=== PATIENT | female | born 2000 | race Hispanic/Latino ===

== ENCOUNTER 2018-08-28 23:49 | Emergency (ER) | payer MEDICAID ==
[2018-08-29 00:20] LABS: BILIRUBIN,URINE NEGATIVE (NEGATIVE); COLOR,URINE YELLOW (YELLOW); GLUCOSE, URINE (UA) NEGATIVE (NEGATIVE); KETONES,URINE NEGATIVE (NEGATIVE); LEUKOCYTE ESTERASE ,URINE LARGE (NEGATIVE); NITRATE,URINE NEGATIVE (NEGATIVE); OCCULT BLOOD,URINE NEGATIVE (NEGATIVE); PROTEIN,URINE NEGATIVE (NEGATIVE); UROBILINOGEN,URINE 0.2 mg/dL (0.2-1.0)
[2018-08-29 00:23] LABS: BASOPHILS % (AUTO) 0.6 % (0.0-5.0); EOSINOPHILS % (AUTO) 1.8 % (0.0-8.0); HEMATOCRIT 36.3 % (36-48); LYMPHOCYTES % (AUTO) 21.2 % (21.0-51.0); MEAN CORPUSCULAR HEMOGLOBIN 33.4 pg (27.0-33.0); MEAN CORPUSCULAR HGB CONC 35.2 g/dL (32.0-36.0); MONOCYTES % (AUTO) 7.2 % (3.0-13.0); NEUTROPHILS % (AUTO) 69.2 % (40.0-77.0); PLATELET COUNT (AUTO) 198 K/uL (130-400); RED BLOOD CELL COUNT(AUTO) 3.82 MIL/uL (4.00-5.50); RED CELL DISTRIBUTION WIDTH 12.8 % (11.0-15.5); WHITE BLOOD COUNT (AUTO) 10.2 K/uL (4.8-10.8)
[2018-08-29 00:24] LABS: APPEARANCE,URINE HAZY (CLEAR)
[2018-08-29 00:28] LABS: BACTERIA,URINE Moderate /HPF (None Seen); RBC,URINE 0-1 /HPF (0-1)
[2018-08-29 00:43] LABS: CREATININE 0.6 mg/dL (0.5-1.5); POTASSIUM 3.5 mmol/L (3.5-5.1)
[2018-08-29 00:47] LABS: ALBUMIN 2.5 g/dL (3.5-5.0); BILIRUBIN,TOTAL 0.2 mg/dL (0.2-1.0); TOTAL PROTEIN, SERUM 6.9 g/dL (6.0-8.3)
[2018-08-29 01:05] LABS: AMPHET/METH SCREEN,URINE NEGATIVE (NEGATIVE); BARBITURATE SCREEN, URINE NEGATIVE (NEGATIVE); BENZODIAZEPINES SCREEN,URINE NEGATIVE (NEGATIVE); CANNABINOID SCREEN,URINE NEGATIVE (NEGATIVE); COCAINE SCREEN,URINE NEGATIVE (NEGATIVE); OPIATE SCREEN,URINE NEGATIVE (NEGATIVE); PHENCYCLIDINE SCREEN,URINE NEGATIVE (NEGATIVE)
[2018-08-29 01:28] LABS: APPEARANCE,URINE CLEAR (CLEAR); BILIRUBIN,URINE NEGATIVE (NEGATIVE); COLOR,URINE YELLOW (YELLOW); GLUCOSE, URINE (UA) NEGATIVE (NEGATIVE); KETONES,URINE NEGATIVE (NEGATIVE); LEUKOCYTE ESTERASE ,URINE SMALL (NEGATIVE); NITRATE,URINE NEGATIVE (NEGATIVE); OCCULT BLOOD,URINE NEGATIVE (NEGATIVE); PH,URINE 6.5 (5.0-8.0); PROTEIN,URINE NEGATIVE (NEGATIVE)
[2018-08-29 01:39] LABS: BACTERIA,URINE Few /HPF (None Seen)
[2018-08-29] MEDS ORDERED: SODIUM CHLORIDE 0.9% 50 ML IV ONE (02:43)
[2018-08-29] MEDS ORDERED: CEFTRIAXONE SODIUM 1 GM ONE (02:43)
== END 2018-08-29 03:23 | disposition home or self-care (01) ==
LOC: EDH 23:49
DX: O23.12 Infections of bladder in pregnancy, second trimester (principal); Z3A.23 23 weeks gestation of pregnancy; Z93.6 Other artificial openings of urinary tract status
CPT/HCPCS: 36415; 76770; 80053; 80305; 81001; 85025; 87077; 87088; 87186; 96374; 99285; J0696

== ENCOUNTER 2018-09-10 18:32 | Emergency (ER) | payer MEDICAID ==
[2018-09-10] MEDS ORDERED: ACETAMINOPHEN EXTRA STRENGTH 500 MG TABLET ONE (19:18)
[2018-09-10] MEDS ORDERED: ACETAMINOPHEN-CODEINE ELIXIR 5 ML UDCUP ONE (21:51)
[2018-09-10 22:26] LABS: BILIRUBIN,URINE Negative (NEGATIVE); COLOR,URINE Dark Yellow (YELLOW); GLUCOSE, URINE (UA) Negative (NEGATIVE); KETONES,URINE >=80 mg/dL (NEGATIVE); LEUKOCYTE ESTERASE ,URINE Moderate (NEGATIVE); NITRATE,URINE Positive (NEGATIVE); OCCULT BLOOD,URINE Large (NEGATIVE); PH,URINE 7.5 (5.0-8.0); PROTEIN,URINE 300 (NEGATIVE)
[2018-09-10 22:31] LABS: APPEARANCE,URINE SLIGHTLY CLOUDY (CLEAR)
[2018-09-10 22:39] LABS: BACTERIA,URINE Few /HPF (None Seen); MUCUS,URINE Rare LPF (None Seen); RBC,URINE 51-100 /HPF (0-1); SQUAMOUS EPITHELIAL CELL,UR 0-2 /HPF (0-2)
== END 2018-09-11 01:04 | disposition home or self-care (01) ==
LOC: EDH 18:32
DX: O23.42 Unspecified infection of urinary tract in pregnancy, second trimester (principal); Z3A.25 25 weeks gestation of pregnancy
CPT/HCPCS: 76770; 81001

== ENCOUNTER 2018-09-17 08:43 | Day surgery (SDC) | payer MEDICAID ==
[2018-09-15 11:58] VITALS: BP 105/60
[2018-09-15 12:13] LABS: INR 0.91 (0.85-1.15); PARTIAL THROMBOPLASTIN TIME 32.4 SEC (26.3-35.5); PROTHROMBIN TIME 9.6 SEC (9.6-11.6)
[2018-09-15 12:14] LABS: ALBUMIN 2.6 g/dL (3.5-5.0); BILIRUBIN,TOTAL 0.2 mg/dL (0.2-1.0); CREATININE 0.5 mg/dL (0.5-1.5); POTASSIUM 4.4 mmol/L (3.5-5.1)
[~2018-09-17] VITALS: Ht 167.6 cm; Wt 75.5 kg
[~2018-09-17 08:43] MED LIST: CLIN300C9 PO; DOXY1TAB3 PO; PREN-64 PO
[2018-09-17 09:45] VITALS: BP 117/68
[2018-09-17] MEDS ORDERED: SODIUM CHLORIDE 0.9% 1000ML 1,000 ML IV ONE (10:06)
[2018-09-17] MEDS ORDERED: IODIXANOL 320 MG/ML 100 ML VIAL ONE (10:55)
[2018-09-17] MEDS ORDERED: LIDOCAINE HCL 1% MDV 50ML VIAL ONE (10:55)
[2018-09-17] MEDS ORDERED: SODIUM BICARB 50MEQ 50ML VIAL ONE (10:55)
[2018-09-17] MEDS ORDERED: LIDOCAINE HCL 2% 20ML ONE (10:56)
[2018-09-17 12:10] VITALS: BP 88/39
[2018-09-17 12:11] VITALS: BP 78/47
[2018-09-17 12:16] VITALS: BP 84/48
[2018-09-17 12:22] VITALS: BP 98/50
[2018-09-17 12:36] VITALS: BP 100/53
== END 2018-09-17 15:00 | disposition home or self-care (01) ==
LOC: DAH 08:43 → SUH 08:43
PROVIDERS: ATTEND Obstetrics & Gynecology
DX: O23.92 Unspecified genitourinary tract infection in pregnancy, second trimester (principal); Z3A.25 25 weeks gestation of pregnancy; N13.30 Unspecified hydronephrosis; M54.5 Low back pain; Z82.49 Family history of ischemic heart disease and other diseases of the circulatory system; Z83.3 Family history of diabetes mellitus
CPT/HCPCS: 36415; 50435; 80053; 85610; 85730; C1729; C1769; J1644; J3490 ×2; J7030; Q9967

== ENCOUNTER 2018-11-02 08:21 | Day surgery (SDC) | payer MEDICAID ==
[2018-11-01 08:55] VITALS: BP 108/60
[2018-11-01 09:19] LABS: ALBUMIN 2.4 g/dL (3.5-5.0); BILIRUBIN,TOTAL 0.2 mg/dL (0.2-1.0); CREATININE 0.5 mg/dL (0.5-1.5); POTASSIUM 3.4 mmol/L (3.5-5.1); TOTAL PROTEIN, SERUM 6.5 g/dL (6.0-8.3)
[2018-11-01 09:31] LABS: INR 0.92 (0.85-1.15); PARTIAL THROMBOPLASTIN TIME 30.9 SEC (26.3-35.5); PROTHROMBIN TIME 9.7 SEC (9.6-11.6)
--- NOTE | 2018-11-01 11:00 | NUR ---
CLARIFICATION ORDER CALLED DR. PEREZ'S OFFICE TO CLARIFY SIDE OF PROCEDURE, SPOKE TO DAPHNEY GLORIA NP. PER DAPHNEY, PROCEDURE TO RIGHT SIDE.
--- NOTE | 2018-11-01 13:41 | NUR ---
ABNORMAL LABS REPORTED ABNORMAL LABS TO DAPHNEY GLORIA NP. POTASSIUM 3.4 AND BUN 2. ORDERS TO REDRAW BMP ON ARRIVAL.
[2018-11-02] VITALS (8 sets, daily range): BP systolic 98–104; BP diastolic 59–80
[~2018-11-02] VITALS: Ht 167.6 cm; Wt 81.4 kg
[~2018-11-02 08:21] MED LIST changes: -CLIN300C9 PO
--- NOTE | 2018-11-02 08:35 | NUR ---
yellow urine in right nephrostomy tube noted, gauze dry, discolored, tape present
[2018-11-02 08:56] LABS: CREATININE 0.5 mg/dL (0.5-1.5); POTASSIUM 3.6 mmol/L (3.5-5.1)
--- NOTE | 2018-11-02 10:44 | NUR ---
to Keymodule Assembly Supervisor for nephrostomy tube exchange via stretcher transport by Elayne CARTY, patient in stable condition
[2018-11-02] MEDS ORDERED: SODIUM BICARB 50MEQ 50ML VIAL ONE (10:45)
[2018-11-02] MEDS ORDERED: IODIXANOL 320 MG/ML 100 ML VIAL ONE (10:45)
[2018-11-02] MEDS ORDERED: LIDOCAINE HCL 1% MDV 50ML VIAL ONE (10:45)
== END 2018-11-02 13:15 | disposition home or self-care (01) ==
LOC: DAH 08:21
PROVIDERS: ATTEND Obstetrics & Gynecology
DX: N13.30 Unspecified hydronephrosis (principal); Z82.49 Family history of ischemic heart disease and other diseases of the circulatory system; Z83.3 Family history of diabetes mellitus; Z79.899 Other long term (current) drug therapy
CPT/HCPCS: 36415 ×2; 50435; 80048; 80053; 85610; 85730; A4606; C1729; C1769 ×2; J1644; J3490 ×2; Q9967

== ENCOUNTER 2018-11-17 13:25 | Observation (INO) | payer MEDICAID ==
[2018-11-17 15:11] LABS: APPEARANCE,URINE CLOUDY (CLEAR); BILIRUBIN,URINE SMALL (NEGATIVE); COLOR,URINE YELLOW (YELLOW); GLUCOSE, URINE (UA) 100 mg/dL (NEGATIVE); KETONES,URINE NEGATIVE (NEGATIVE); LEUKOCYTE ESTERASE ,URINE MODERATE (NEGATIVE); NITRATE,URINE NEGATIVE (NEGATIVE); OCCULT BLOOD,URINE LARGE (NEGATIVE); PROTEIN,URINE 30 (NEGATIVE)
[2018-11-17 15:55] LABS: BACTERIA,URINE Few /HPF (None Seen); SQUAMOUS EPITHELIAL CELL,UR Rare /HPF (0-2); WBC,URINE 26-50 /HPF (0-1)
[2018-11-17 15:56] LABS: CALCIUM OXALATE CRYSTALS,UR Few /LPF (None Seen); TRANSITIONAL EPI CELLS,URINE Few /HPF (None Seen)
[2018-11-17 15:57] LABS: COARSE GRANULAR CASTS,URINE 0-2 /LPF (None Seen)
[2018-11-17] MEDS ORDERED: LIDOCAINE HCL-MPF 1% 2ML VIAL IM SCH (16:15)
[2018-11-17] MEDS ORDERED: CEFTRIAXONE SODIUM 1 GM IM SCH (16:15)
== END 2018-11-17 16:30 | disposition home or self-care (01) ==
LOC: EDH 13:25 → LDH 13:26
PROVIDERS: ADMIT Obstetrics & Gynecology; ATTEND Obstetrics & Gynecology
DX: O26.893 Other specified pregnancy related conditions, third trimester (principal); R10.30 Lower abdominal pain, unspecified; Z3A.34 34 weeks gestation of pregnancy
CPT/HCPCS: 81001; 96372 ×2; 99284; G0378 ×3; J0696; J3490

== ENCOUNTER 2018-11-23 22:32 | Observation (INO) | payer MEDICAID ==
[~2018-11-23] VITALS: Ht 167.6 cm; Wt 82.1 kg
[2018-11-23] MEDS ORDERED: LACTATED RINGERS 1000ML 1,000 ML IV SCH (22:45)
[2018-11-23 22:49] VITALS: BP 119/73
[2018-11-23 23:37] LABS: APPEARANCE,URINE Turbid (CLEAR); BILIRUBIN,URINE Negative (NEGATIVE); COLOR,URINE Dark Yellow (YELLOW); GLUCOSE, URINE (UA) Negative (NEGATIVE); KETONES,URINE Trace mg/dL (NEGATIVE); LEUKOCYTE ESTERASE ,URINE Large (NEGATIVE); NITRATE,URINE Negative (NEGATIVE); OCCULT BLOOD,URINE Moderate (NEGATIVE); PH,URINE 5.5 (5.0-8.0); PROTEIN,URINE POS 2+ (NEGATIVE)
[2018-11-23 23:50] LABS: BACTERIA,URINE Few /HPF (None Seen); WBC,URINE 26-50 /HPF (0-1)
[2018-11-23 23:51] LABS: CALCIUM OXALATE CRYSTALS,UR Few /LPF (None Seen); MUCUS,URINE Many LPF (None Seen); SQUAMOUS EPITHELIAL CELL,UR Moderate /HPF (0-2)
== END 2018-11-24 00:05 | disposition home or self-care (01) ==
LOC: EDH 22:32 → LDH 22:33
PROVIDERS: ADMIT Obstetrics & Gynecology; ATTEND Obstetrics & Gynecology
DX: O60.03 Preterm labor without delivery, third trimester (principal); Z3A.35 35 weeks gestation of pregnancy
CPT/HCPCS: 81001; 99284; G0378 ×2

== ENCOUNTER 2018-11-24 06:32 | Emergency (ER) | payer MEDICAID ==
[2018-11-24 07:04] LABS: APPEARANCE,URINE Clear (CLEAR); BILIRUBIN,URINE Negative (NEGATIVE); COLOR,URINE Yellow (YELLOW); GLUCOSE, URINE (UA) Negative (NEGATIVE); KETONES,URINE Negative (NEGATIVE); LEUKOCYTE ESTERASE ,URINE Large (NEGATIVE); NITRATE,URINE Negative (NEGATIVE); OCCULT BLOOD,URINE Small (NEGATIVE); PH,URINE 6.5 (5.0-8.0); PROTEIN,URINE Negative (NEGATIVE)
[2018-11-24 07:25] LABS: BACTERIA,URINE Rare /HPF (None Seen); RBC,URINE 0-1 /HPF (0-1); SQUAMOUS EPITHELIAL CELL,UR Rare /HPF (0-2); WBC,URINE 26-50 /HPF (0-1)
[2018-11-24 07:29] LABS: BASOPHILS % (AUTO) 0.7 % (0.0-5.0); EOSINOPHILS % (AUTO) 1.4 % (0.0-8.0); HEMATOCRIT 34.7 % (36-48); LYMPHOCYTES % (AUTO) 24.3 % (21.0-51.0); MEAN CORPUSCULAR HEMOGLOBIN 29.3 pg (27.0-33.0); MEAN CORPUSCULAR HGB CONC 33.1 g/dL (32.0-36.0); MEAN CORPUSCULAR VOLUME 88.7 fL (80-100); MONOCYTES % (AUTO) 8.7 % (3.0-13.0); NEUTROPHILS % (AUTO) 64.9 % (40.0-77.0); NUCLEATED RED BLOOD CELLS 0.1 % (0.0-0.19); PLATELET COUNT (AUTO) 214 K/uL (130-400); RED BLOOD CELL COUNT(AUTO) 3.91 MIL/uL (4.00-5.50); RED CELL DISTRIBUTION WIDTH 13.9 % (11.0-15.5); WHITE BLOOD COUNT (AUTO) 9.2 K/uL (4.8-10.8)
[2018-11-24 07:32] LABS: CREATININE 0.5 mg/dL (0.5-1.5); POTASSIUM 3.6 mmol/L (3.5-5.1)
[2018-11-24 07:38] LABS: ALBUMIN 2.4 g/dL (3.5-5.0); BILIRUBIN,DIRECT 0.1 mg/dL (0.0-0.3); BILIRUBIN,TOTAL 0.2 mg/dL (0.2-1.0); TOTAL PROTEIN, SERUM 6.4 g/dL (6.0-8.3)
[2018-11-24 08:39] LABS: INR 0.9 (0.85-1.15); PARTIAL THROMBOPLASTIN TIME 29.2 SEC (26.3-35.5); PROTHROMBIN TIME 9.5 SEC (9.6-11.6)
== END 2018-11-24 09:46 | disposition home or self-care (01) ==
LOC: EDH 06:32
DX: O26.893 Other specified pregnancy related conditions, third trimester (principal); T83.022A Displacement of nephrostomy catheter, initial encounter; R10.9 Unspecified abdominal pain; Z3A.35 35 weeks gestation of pregnancy; Y84.8 Other medical procedures as the cause of abnormal reaction of the patient, or of later complication, without mention of misadventure at the time of the procedure; Y92.89 Other specified places as the place of occurrence of the external cause
CPT/HCPCS: 36415; 80048; 80076; 83690; 85025; 85610; 85730

== ENCOUNTER 2018-11-24 14:34 | Day surgery (SDC) | payer MEDICAID ==
[~2018-11-24] VITALS: Ht 167.6 cm; Wt 81.6 kg
[2018-11-24 15:15] VITALS: BP 116/67
[2018-11-24 16:15] VITALS: BP 114/66
[2018-11-24 17:00] VITALS: BP 102/61
--- NOTE | 2018-11-24 17:40 | NUR ---
transported to slab stripper via stretcher in stable condition by Elayne CARTY
[2018-11-24] MEDS ORDERED: LIDOCAINE HCL 1% MDV 50ML VIAL ONE (17:55)
[2018-11-24] MEDS ORDERED: IODIXANOL 320 MG/ML 100 ML VIAL ONE (17:55)
[2018-11-24 18:40] VITALS: BP 105/54
--- NOTE | 2018-11-24 18:40 | NUR ---
ASSESSMENT PT HERE FROM [employer]. PT AAOX3. NEPHROSTOMY TUBE DRY AND INTACT. SOFT TO TOUCH. DRAINING CLEAR YELLOW URINE. AT BEDSIDE.
[2018-11-24 19:00] VITALS: BP 102/57
--- NOTE | 2018-11-24 19:00 | NUR ---
SITE CHECK. NEPHROSTOMY TUBE DRY AND INTACT. SOFT TO TOUCH. DISCHARGE INSTRUCTIONS GIVEN TO PT AND PTS . BOTH VERBALIZED UNDERSTANDING. INSTRUCTED ON IMPORTANCE OF BAG NOT DRAINING TO CALL MD. VERBALIZED UNDERSTANDING.
--- NOTE | 2018-11-24 19:28 | NUR ---
LOWER BACK Addendum: 11/24/18 at 1928 by DOMINIC GARZA RN RN Amended: Links added.
== END 2018-11-24 19:05 | disposition home or self-care (01) ==
LOC: DAH 14:34 → EDSTATUS 14:34 → DAH 19:05
PROVIDERS: ATTEND Obstetrics & Gynecology
DX: T83.84XA Pain due to genitourinary prosthetic devices, implants and grafts, initial encounter (principal); Z82.49 Family history of ischemic heart disease and other diseases of the circulatory system; Z83.3 Family history of diabetes mellitus; N13.30 Unspecified hydronephrosis
CPT/HCPCS: 50431; A4606; C1769; J1644; J3490; Q9967

== ENCOUNTER 2018-12-19 06:42 | Observation (INO) | payer MEDICAID ==
[~2018-12-19] VITALS: Ht 198.1 cm; Wt 83.5 kg
[2018-12-19 07:31] LABS: APPEARANCE,URINE SL CLOUDY (CLEAR); BILIRUBIN,URINE NEGATIVE (NEGATIVE); COLOR,URINE YELLOW (YELLOW); GLUCOSE, URINE (UA) NEGATIVE (NEGATIVE); KETONES,URINE NEGATIVE (NEGATIVE); LEUKOCYTE ESTERASE ,URINE MODERATE (NEGATIVE); NITRATE,URINE NEGATIVE (NEGATIVE); OCCULT BLOOD,URINE NEGATIVE (NEGATIVE); PROTEIN,URINE NEGATIVE (NEGATIVE); UROBILINOGEN,URINE 0.2 mg/dL (0.2-1.0)
[2018-12-19 07:59] LABS: BACTERIA,URINE Few /HPF (None Seen); RBC,URINE None Seen /HPF (0-1); SQUAMOUS EPITHELIAL CELL,UR Few /HPF (0-2)
== END 2018-12-19 10:40 | disposition home or self-care (01) ==
LOC: EDH 06:42 → LDH 06:43 → EDH 06:50
PROVIDERS: ADMIT Obstetrics & Gynecology; ATTEND Obstetrics & Gynecology
DX: O26.893 Other specified pregnancy related conditions, third trimester (principal); R10.10 Upper abdominal pain, unspecified
CPT/HCPCS: 81001; 99284; G0378 ×4

== ENCOUNTER 2018-12-21 18:22 | Inpatient (IN) | payer MEDICAID | END 2018-12-24 10:40 | disposition home or self-care (01) | LOC: LDH 18:22 → WSH 12-22 18:00 | PROC: 10E0XZZ Delivery of Products of Conception, External Approach (ICD-10-PCS; principal; ~2018-12-21) | DX: O80 Encounter for full-term uncomplicated delivery (principal); Z37.0 Single live birth; Z3A.39 39 weeks gestation of pregnancy ==

== ENCOUNTER 2019-01-14 10:28 | Inpatient (IN) | payer MEDICAID ==
[~2019-01-14] VITALS: Ht 167.6 cm; Wt 69.8 kg
[2019-01-14] MEDS ORDERED: ACETAMINOPHEN 325 MG TAB ONE ×2 (11:10→16:14)
[2019-01-14] MEDS ORDERED: LEVOFLOXACIN 500 MG/D5W 100 ML 100 ML ONE (11:10)
[2019-01-14] MEDS ORDERED: ONDANSETRON HCL 4 MG/2 ML VIAL ONE ×2 (11:10→17:58)
[2019-01-14] MEDS ORDERED: MORPHINE SULFATE 4 MG/1ML SYG ONE (11:11)
[2019-01-14 11:17] LABS: BASOPHILS % (AUTO) 0.3 % (0.0-5.0); EOSINOPHILS % (AUTO) 0.4 % (0.0-8.0); HEMATOCRIT 37.4 % (36-48); LYMPHOCYTES % (AUTO) 5.5 % (21.0-51.0); MEAN CORPUSCULAR HEMOGLOBIN 27.4 pg (27.0-33.0); MEAN CORPUSCULAR HGB CONC 32.7 g/dL (32.0-36.0); NEUTROPHILS % (AUTO) 89.8 % (40.0-77.0); PLATELET COUNT (AUTO) 240 K/uL (130-400); RED BLOOD CELL COUNT(AUTO) 4.46 MIL/uL (4.00-5.50); RED CELL DISTRIBUTION WIDTH 15.5 % (11.0-15.5); WHITE BLOOD COUNT (AUTO) 13.5 K/uL (4.8-10.8)
[2019-01-14 11:21] LABS: APPEARANCE,URINE CLOUDY (CLEAR); BILIRUBIN,URINE NEGATIVE (NEGATIVE); COLOR,URINE YELLOW (YELLOW); GLUCOSE, URINE (UA) NEGATIVE (NEGATIVE); KETONES,URINE NEGATIVE (NEGATIVE); LEUKOCYTE ESTERASE ,URINE LARGE (NEGATIVE); NITRATE,URINE POSITIVE (NEGATIVE); OCCULT BLOOD,URINE LARGE (NEGATIVE); PROTEIN,URINE 30 mg/dL (NEGATIVE); UROBILINOGEN,URINE 0.2 mg/dL (0.2-1.0)
[2019-01-14 11:30] LABS: BACTERIA,URINE Many /HPF (None Seen); INR 0.99 (0.85-1.15); PROTHROMBIN TIME 10.4 SEC (9.6-11.6); RBC,URINE 0-1 /HPF (0-1); WBC,URINE TNTC /HPF (0-1)
[2019-01-14 11:31] LABS: MUCUS,URINE Rare LPF (None Seen); SQUAMOUS EPITHELIAL CELL,UR Rare /HPF (0-2)
[2019-01-14 11:34] LABS: CARBON DIOXIDE 24 mmol/L (21-32); CHLORIDE 105 mmol/L (101-111); GLOMERULAR FILTR. RATE CALC 75 mL/min (>60); GLUCOSE,RANDOM 110 mg/dL (70-105); POTASSIUM 3.5 mmol/L (3.5-5.1); SODIUM SERUM 141 mmol/L (136-145); UREA NITROGEN, BLOOD 10 mg/dL (7-18)
[2019-01-14 11:50] LABS: ALANINE AMINOTRANSFERASE 71 U/L (12-78); ALBUMIN 3.1 g/dL (3.5-5.0); ASPARTATE AMINOTRANSFERASE 16 U/L (10-37); BILIRUBIN,TOTAL 0.4 mg/dL (0.2-1.0); CREATINE KINASE, TOTAL 36 U/L (21-232); MYOGLOBIN 41 ng/mL (10-92); TOTAL PROTEIN, SERUM 7.1 g/dL (6.0-8.3); TROPONIN I < 0.04 ng/mL (0.00-0.06)
[2019-01-14] MEDS: SODIUM CHLORIDE 0.9% 1000ML 1,000 ML IV SCH ×2 (12:00→20:30)
[2019-01-14] MEDS ORDERED: MORPHINE SULFATE 4 MG/1ML SYG IV PRN (13:30)
[2019-01-14] MEDS ORDERED: ACETAMINOPHEN 325 MG TAB PO PRN (13:30)
[2019-01-14] MEDS ORDERED: ONDANSETRON HCL 4 MG/2 ML VIAL IV PRN (13:30)
[2019-01-14] MEDS ORDERED: MORPHINE SULFATE 2 MG/ML 1ML SYG IV PRN (13:30)
[2019-01-14] MEDS ORDERED: LACTULOSE 20 GM/30 ML UDCUP PO PRN (13:30)
[2019-01-14 13:40] LABS: HEMOGLOBIN A1C 5.6 % (4.0-6.0)
[2019-01-14 13:55] LABS: MAGNESIUM 1.6 mg/dL (1.80-2.40); PHOSPHORUS 2.4 mg/dL (2.5-4.9)
[2019-01-14] MEDS ORDERED: IOHEXOL-350 75 ML VIAL IV ONE (15:42)
[2019-01-14] MEDS ORDERED: MAGNESIUM 2GM PREMIX 50ML 50 ML IV PRN (15:45)
[2019-01-14] MEDS ORDERED: MORPHINE SULFATE 2 MG/ML 1ML SYG ONE ×2 (16:07→17:50)
[2019-01-14] MEDS ORDERED: ZOSYN 3.375GM+NS 50ML 50 ML IV ONE (16:17)
[2019-01-14] MEDS: NEUTRA-PHOS PACKET 1 EACH PO SCH ×2 (17:00→21:00)
[2019-01-14] MEDS ORDERED: IBUPROFEN 400 MG TABLET ONE (17:49)
[2019-01-14] MEDS ORDERED: IBUPROFEN 200 MG TAB ONE (17:50)
--- NOTE | 2019-01-14 19:39 | NUR ---
PT WAS ADMITTED FROM ER FOR SEPSIS AND FEVER. PT WAS ORIENTED TO ROOM AND STAFF AND PT AT PRESENT IS OFFERING N/C. STATES SHE IS HUNGRY BUT AT PRESENT SHE IS NPO AND PT UNDERSTANDS WAS GIVEN ICE CHIPS.
[2019-01-14 19:45] VITALS: BP 107/57
[2019-01-14 20:00] VITALS: BP 106/55
[2019-01-14] MEDS: FAMOTIDINE/PF 20 MG/2 ML VIAL IV SCH (20:52)
[2019-01-14] MEDS: ZOSYN 3.375GM+NS 50ML 50 ML IV SCH (20:52)
[2019-01-14 21:00] VITALS: BP 84/33
[2019-01-14 22:00] VITALS: BP 81/66
[2019-01-14] MEDS: ACETAMINOPHEN 325 MG TAB PO PRN (22:01)
--- NOTE | 2019-01-14 22:30 | NUR ---
MEDICATED FOR NAUSEA AND PT HAD DRANK SOME APPLE JUICE, WAS ADVISED NOT TO DRINK ANY MORE JUICE FOR NOW.
[2019-01-14 23:00] VITALS: BP 96/51
[2019-01-15] VITALS (20 sets, daily range): BP systolic 81–118; BP diastolic 33–69
[2019-01-15 03:49] LABS: HEMATOCRIT 34.1 % (36-48); MEAN CORPUSCULAR HEMOGLOBIN 27.2 pg (27.0-33.0); MEAN CORPUSCULAR HGB CONC 32.1 g/dL (32.0-36.0); MEAN CORPUSCULAR VOLUME 84.8 fL (80-100); PLATELET COUNT (AUTO) 216 K/uL (130-400); RED BLOOD CELL COUNT(AUTO) 4.02 MIL/uL (4.00-5.50); WHITE BLOOD COUNT (AUTO) 17.3 K/uL (4.8-10.8)
[2019-01-15 04:07] LABS: CREATININE 0.9 mg/dL (0.5-1.5); POTASSIUM 3.6 mmol/L (3.5-5.1)
--- NOTE | 2019-01-15 04:57 | NUR ---
PT HAS BEEN UP TO BATHROOM TO VOID WITHOUT ANY DIFFICULTY. PT HAS HAD NO FURTHER NAUSEA.
[2019-01-15] MEDS: ZOSYN 3.375GM+NS 50ML 50 ML IV SCH ×3 (05:01→20:21)
[2019-01-15] MEDS: NEUTRA-PHOS PACKET 1 EACH PO SCH ×5 (09:22→20:21)
[2019-01-15] MEDS: FAMOTIDINE/PF 20 MG/2 ML VIAL IV SCH ×2 (09:23→20:21)
[2019-01-15] MEDS: ENOXAPARIN SODIUM 40 MG/0.4 ML SYRINGE SQ SCH (09:23)
[2019-01-15] MEDS ORDERED: MAGNESIUM 2GM PREMIX 50ML 50 ML IV PRN (11:15)
--- NOTE | 2019-01-15 11:15 | NUR ---
STATUS: DR. ALCAZAR ADVISED (RECEIVED INFORMATION FRO REGGIE BELLAMY IN REPORT THIS A.M.) THAT DR. DIAZ (UROLOGIST STREET CLEANER) STATES HE DOES NOT WANT TO GET INVOLVED IN CASE PATIENT IS PATIENT OF DR. BHATIA. DR. HOBBS IS INTERVENTIONAL RADIOLOGIST STREET CLEANER TODAY - HE WAS PAGED TO DR. ALCAZAR'S CELL NUMBER TO DISCUSS REMOVAL OF NEPHROSTOMY TUBE TODAY. PT ADVISED NPO.
--- NOTE | 2019-01-15 15:00 | NUR ---
UPDATE: PT ADVISED ON PLAN FOR 48 HRS ANTIBIOTICS THEN TO INTERVENTIONAL RADIOLOGY ON THURSDAY FOR PYELOGRAM AND POSS REMOVAL OF NEPHROSTOMY TUBE PER DR. ALCAZAR.
--- NOTE | 2019-01-15 16:00 | NUR ---
TRANSFERRED VIA AMBULATION TO ROOM 226. REPORT TO CARLOZ HUBBARD
--- NOTE | 2019-01-15 16:15 | NUR ---
RECEIVED TRANSFER TO ROOM 226 VIA BED ACCOMPANIED BY Lencho GLORIA, ALVA. PT. AAOX3, RESP.'S EVEN AND UNLABORED. DENIES ANY C/O SOB, DENIES ANY CURRENT PAIN. PLEASANT, SMILES; TALKATIVE. NEPHROSTOMY TUBE IN PLACE, SECURE; DRAINAGE BAG IN PLACE. ORIENTED TO ROOM AND SURROUNDINGS. COMPLETE ASSESSMENT DONE. CALL LIGHT WITHIN REACH. PARENTS AT BEDSIDE. Addendum: 01/15/19 at 1943 by STEVIE COOL RN RN CORRECTION:TRANSFERRED VIA AMBULATORY.
[2019-01-15] MEDS: SODIUM CHLORIDE 0.9% 1000ML 1,000 ML IV SCH (17:00)
--- NOTE | 2019-01-15 19:14 | NUR ---
cm note met with patient and states is independent with adls and ambulation. lives with parents, states no dc needs. dc plan is back to home. Addendum: 01/15/19 at 1916 by CHARLA BUTTS CM Amended: Links added.
[2019-01-16] MEDS: SODIUM CHLORIDE 0.9% 1000ML 1,000 ML IV SCH ×2 (00:38→04:32)
[2019-01-16 03:51] VITALS: BP 127/67
[2019-01-16] MEDS: ZOSYN 3.375GM+NS 50ML 50 ML IV SCH ×3 (04:21→20:11)
[2019-01-16 04:45] LABS: BASOPHILS % (AUTO) 0.9 % (0.0-5.0); EOSINOPHILS % (AUTO) 1.6 % (0.0-8.0); HEMATOCRIT 34.2 % (36-48); LYMPHOCYTES % (AUTO) 22.5 % (21.0-51.0); MEAN CORPUSCULAR HEMOGLOBIN 27.7 pg (27.0-33.0); MEAN CORPUSCULAR HGB CONC 32.7 g/dL (32.0-36.0); MEAN CORPUSCULAR VOLUME 84.6 fL (80-100); MONOCYTES % (AUTO) 12.1 % (3.0-13.0); NEUTROPHILS % (AUTO) 62.9 % (40.0-77.0); PLATELET COUNT (AUTO) 190 K/uL (130-400); RED BLOOD CELL COUNT(AUTO) 4.04 MIL/uL (4.00-5.50); RED CELL DISTRIBUTION WIDTH 15.7 % (11.0-15.5); WHITE BLOOD COUNT (AUTO) 8.2 K/uL (4.8-10.8)
[2019-01-16 05:02] LABS: CREATININE 0.8 mg/dL (0.5-1.5); CRP QUANTITATIVE 144.1 mg/L (0.00-9.0); MAGNESIUM 1.6 mg/dL (1.80-2.40); PHOSPHORUS 3.2 mg/dL (2.5-4.9); POTASSIUM 3.4 mmol/L (3.5-5.1)
[2019-01-16 06:26] LABS: ERYTHROCYTE SEDIMENTATION RATE 45 MM/HR (0-20)
[2019-01-16 07:23] VITALS: BP 112/59
[2019-01-16] MEDS: POTASSIUM CHLORIDE 20 MEQ ERTAB PO SCH (08:47)
[2019-01-16] MEDS: FAMOTIDINE/PF 20 MG/2 ML VIAL IV SCH ×2 (08:47→20:11)
[2019-01-16] MEDS: ENOXAPARIN SODIUM 40 MG/0.4 ML SYRINGE SQ SCH (08:51)
[2019-01-16] MEDS: NEUTRA-PHOS PACKET 1 EACH PO SCH ×2 (08:58→12:15)
[2019-01-16 11:33] VITALS: BP 121/72
[2019-01-16 16:14] VITALS: BP 117/70
--- NOTE | 2019-01-16 16:40 | NUR ---
SITTING UP IN BED WATCHING TELEVISION, W/O C/O. CALL LIGHT WITHIN REACH. SIGNIFICANT OTHER AT BEDSIDE.
--- NOTE | 2019-01-16 18:36 | NUR ---
NOTIFIED DR. COFFEY RE:CONSULT. NO NEW ORDERS RECEIVED AT THIS TIME.
[2019-01-16 19:47] VITALS: BP 117/65
[2019-01-16 23:28] VITALS: BP 121/70
[2019-01-17 03:26] VITALS: BP 109/63
[2019-01-17] MEDS: ZOSYN 3.375GM+NS 50ML 50 ML IV SCH (04:42)
[2019-01-17 04:47] LABS: MEAN CORPUSCULAR HEMOGLOBIN 27.6 pg (27.0-33.0); MEAN CORPUSCULAR HGB CONC 32.7 g/dL (32.0-36.0); MEAN CORPUSCULAR VOLUME 84.5 fL (80-100); NUCLEATED RED BLOOD CELLS 0.1 % (0.0-0.19); PLATELET COUNT (AUTO) 218 K/uL (130-400); RED BLOOD CELL COUNT(AUTO) 4.27 MIL/uL (4.00-5.50); RED CELL DISTRIBUTION WIDTH 15.6 % (11.0-15.5)
[2019-01-17 04:56] LABS: CREATININE 0.8 mg/dL (0.5-1.5); MAGNESIUM 1.9 mg/dL (1.80-2.40); POTASSIUM 3.8 mmol/L (3.5-5.1)
[2019-01-17] MEDS: POTASSIUM CHLORIDE 20 MEQ ERTAB PO SCH (07:10)
[2019-01-17 07:59] VITALS: BP 111/77
--- NOTE | 2019-01-17 08:00 | NUR ---
ASSESSMENT PT IS AAOX4 DENIES CP DENIES SOB DENIES NV NO COMPLAINTS RESTING IN BED. PENDING PYELOGRAM TODAY, NOTED CONSENT IS DONE. NPO STATUS. LOVENOX NOT GIVEN. VISITOR AT BEDSIDE. CALL LIGHT WITHIN REACH.
[2019-01-17] MEDS: ENOXAPARIN SODIUM 40 MG/0.4 ML SYRINGE SQ SCH (08:15)
[2019-01-17] MEDS: FAMOTIDINE/PF 20 MG/2 ML VIAL IV SCH ×2 (08:16→19:53)
[2019-01-17 11:48] VITALS: BP 113/75
[2019-01-17] MEDS: MEROPENEM 1 GM VIAL IVP SCH ×2 (14:15→19:53)
--- NOTE | 2019-01-17 14:21 | NUR ---
DOWN TO VETERINARY PHYSIOLOGIST/IR VIA BED WITH VETERINARY PHYSIOLOGIST STAFF
[2019-01-17] MEDS ORDERED: IOHEXOL-350 50ML VIAL IV ONE (14:29)
[2019-01-17] MEDS ORDERED: IODIXANOL 320 MG/ML 100 ML VIAL ONE (14:49)
--- NOTE | 2019-01-17 15:30 | NUR ---
RETURNED FROM CORE WINDING OPERATOR / IR RIGHT FLANK BACK SIDE DRESSING CLEAN DRY AND INTACT, NO OOZING NOTED. DENIES PAIN.
[2019-01-17 15:35] VITALS: BP 117/70
--- NOTE | 2019-01-17 17:52 | NUR ---
STATUS DENIES PAIN. VISITOR AT BEDSIDE.
[2019-01-17 19:57] VITALS: BP 140/71
--- NOTE | 2019-01-17 21:00 | NUR ---
PT IS IN BED, CALM. ASKING ABOUT PICC LINE PLACEMENT. AND DISCHARGE. NO DISTRESS NOTED. NO PAIN STATED. ABLE TO AMBULATE. AT BEDSIDE.
[2019-01-18] VITALS (7 sets, daily range): BP systolic 98–113; BP diastolic 51–75
[2019-01-18] MEDS: MEROPENEM 1 GM VIAL IVP SCH ×3 (06:21→19:31)
[2019-01-18] MEDS: FAMOTIDINE/PF 20 MG/2 ML VIAL IV SCH ×2 (07:33→19:32)
[2019-01-18] MEDS: ENOXAPARIN SODIUM 40 MG/0.4 ML SYRINGE SQ SCH (07:34)
--- NOTE | 2019-01-18 08:00 | NUR ---
ASSESSMENT PT IS AAOX4 DENIES CP DENIES SOB DENIES NV. NO COMPLAINTS RIGHT BACK DRESSING CLEAN DRY AND INTACT. CALL LIGHT WITHIN REACH.
--- NOTE | 2019-01-18 10:30 | NUR ---
MD ROUNDS DR COFFEY AND DR ALCAZAR ROUNDED. ORDERS RECEIVED FOR PICC LINE. PICC LINE CONSENT OBTAINED.
[2019-01-18 11:50] LABS: INR 0.99 (0.85-1.15); PARTIAL THROMBOPLASTIN TIME 35.7 SEC (26.3-35.5); PROTHROMBIN TIME 10.4 SEC (9.6-11.6)
--- NOTE | 2019-01-18 12:48 | NUR ---
VIV PLAN PETR SIGNED FOR [facility]U. FORMS SIGNED BY . [place] [facility] [place] [facility]. Addendum: 01/18/19 at 1249 by MYA KWON RN CM Amended: Links added.
--- NOTE | 2019-01-18 14:38 | NUR ---
PICC LINE NURSE AT BEDSIDE
[2019-01-18] MEDS: ACETAMINOPHEN 325 MG TAB PO PRN (19:33)
--- NOTE | 2019-01-18 21:00 | NUR ---
PT IS SP PICC LINE. HAS BEEN STABLE. MINIMAL SORENESS STATED TO SITE. GIVEN TYLENOL PRN. NO DISTRESS NOTED. ABLE TO AMBULATE TO RR. PT WAS TOLD WOULD BE D/C 01/19 AUI WITH ABTS. AAO3. PERRLA.
[2019-01-19 03:50] LABS: BASOPHILS % (AUTO) 0.3 % (0.0-5.0); EOSINOPHILS % (AUTO) 2.8 % (0.0-8.0); HEMATOCRIT 38.6 % (36-48); LYMPHOCYTES % (AUTO) 38.7 % (21.0-51.0); MEAN CORPUSCULAR HEMOGLOBIN 27.4 pg (27.0-33.0); MEAN CORPUSCULAR HGB CONC 32.6 g/dL (32.0-36.0); MEAN CORPUSCULAR VOLUME 84.1 fL (80-100); MONOCYTES % (AUTO) 9.3 % (3.0-13.0); NEUTROPHILS % (AUTO) 48.9 % (40.0-77.0); NUCLEATED RED BLOOD CELLS 0.1 % (0.0-0.19); PLATELET COUNT (AUTO) 278 K/uL (130-400); RED CELL DISTRIBUTION WIDTH 15.5 % (11.0-15.5); WHITE BLOOD COUNT (AUTO) 7.4 K/uL (4.8-10.8)
[2019-01-19 03:56] VITALS: BP 102/82
[2019-01-19 04:10] LABS: CREATININE 0.8 mg/dL (0.5-1.5); POTASSIUM 3.9 mmol/L (3.5-5.1)
[2019-01-19] MEDS: MEROPENEM 1 GM VIAL IVP SCH ×2 (06:20→15:31)
--- NOTE | 2019-01-19 07:45 | NUR ---
AM ASSESSMENT PT LAYING IN BED, RESTING. CONTACT ISOLATION MAINTAINED. A/O X 3. NO SOB. NO DISTRESS NOTED. DENIES CHEST PAIN OR DISCOMFORT. DENIES PALPITATIONS. TELE: SR 60-SB 50s. DANIEL PICC LINE, INSERTED YESTERDAY. DENIES DISCOMFORT WHEN VOIDING. DENIES N/V AND/OR DIARRHEA. UP AD MARÍA. INSTRUCTED TO CALL FOR ASSISTANCE. CALL BARTOLO W/IN REACH. Addendum: 01/19/19 at 1122 by SHRUTHI AGUSTIN RN RN Amended: Links added.
[2019-01-19 07:48] VITALS: BP 107/67
[2019-01-19] MEDS: FAMOTIDINE/PF 20 MG/2 ML VIAL IV SCH (08:13)
[2019-01-19] MEDS: ENOXAPARIN SODIUM 40 MG/0.4 ML SYRINGE SQ SCH (08:13)
[2019-01-19 11:53] VITALS: BP 100/69
--- NOTE | 2019-01-19 15:45 | NUR ---
DISCHARGE TELE LELO REMOVED 2 THIS TIME.
[2019-01-19 15:53] VITALS: BP 119/77
--- NOTE | 2019-01-19 16:12 | NUR ---
VIV PLAN CALLED [facility] SEVERAL TIMES. GOT CALL BACK PATIENT IS ACCEPTED AND IS DUE TOMORROW AT 2PM. PATIENT FINISHED REGISTERING. LET PATIENT AND NURSE KNOW. Addendum: 01/19/19 at 1615 by MYA KWON RN CM Amended: Links added.
--- NOTE | 2019-01-19 16:35 | NUR ---
GIVEN DISMISSAL INSTRUCTIONS AND INSTRUCTED PT TO [place] [facility] [place] [facility] [place] 2[place]TIBIOTIC THERAPY. VERBALIZED UNDERSTANDING. PICC LINE TO RIGHT UPPER ARM APPEARS HEALTHY. AWAITING FOR FAMILY MEMBER TO PICK HER UP.
--- NOTE | 2019-01-19 16:45 | NUR ---
TAKEN TO PRIVATE CAR ALONG WITH PERSONAL BELONGINGS VIA WHEELCHAIR BY ALVA WHITE.
[2019-01-19] MEDS ORDERED: MEROPENEM 1 GM VIAL IVP SCH (22:00)
== END 2019-01-19 16:45 | disposition home or self-care (01) | DRG 720 ==
LOC: EDH 10:28 → EDHIP 10:29 → 2BH 19:29 → 2DH 01-15 16:00
PROVIDERS: ADMIT Internal Medicine; ATTEND Internal Medicine
PROC: BT111ZZ Fluoroscopy of Right Kidney using Low Osmolar Contrast (ICD-10-PCS; principal; 2019-01-17)
PROC: 0TP5X0Z Removal of Drainage Device from Kidney, External Approach (ICD-10-PCS; 2019-01-17)
PROC: 02HV33Z Insertion of Infusion Device into Superior Vena Cava, Percutaneous Approach (ICD-10-PCS; 2019-01-18)
DX: A41.51 Sepsis due to Escherichia coli [E. coli] (principal); N17.9 Acute kidney failure, unspecified; E83.42 Hypomagnesemia; E83.39 Other disorders of phosphorus metabolism; N13.9 Obstructive and reflux uropathy, unspecified; N39.0 Urinary tract infection, site not specified; E86.1 Hypovolemia; R65.20 Severe sepsis without septic shock; Z16.12 Extended spectrum beta lactamase (ESBL) resistance; I25.5 Ischemic cardiomyopathy; Z16.24 Resistance to multiple antibiotics; B96.89 Other specified bacterial agents as the cause of diseases classified elsewhere; E87.6 Hypokalemia; E78.5 Hyperlipidemia, unspecified; I10 Essential (primary) hypertension; Z93.6 Other artificial openings of urinary tract status; Z95.1 Presence of aortocoronary bypass graft; Z83.3 Family history of diabetes mellitus; Z82.49 Family history of ischemic heart disease and other diseases of the circulatory system; Z83.42 Family history of familial hypercholesterolemia
CPT/HCPCS: 36415; 50431; 71045; 74177; 80048; 80053; 81001; 82550; 83036; 83605; 83735; 83874; 84100; 84145; 84484; 85025; 85027; 85610; 85651; 85730; 86140; 87040; 87077; 87088; 87186; 87804; 93005; 99291; A4218; C1769; C1894; G0378; J1650; J1956; J2185; J2270; J2405; J2543; J3490; J7030; Q9967

== ENCOUNTER 2019-02-13 15:37 | Emergency (ER) | payer MEDICAID ==
[2019-02-13] MEDS ORDERED: ONDANSETRON HCL 4 MG/2 ML VIAL ONE (16:08)
[2019-02-13] MEDS ORDERED: MORPHINE SULFATE 4 MG/1ML SYG ONE (16:08)
[2019-02-13 16:29] LABS: BASOPHILS % (AUTO) 2.2 % (0.0-5.0); EOSINOPHILS % (AUTO) 0.3 % (0.0-8.0); HEMATOCRIT 37.9 % (36-48); LYMPHOCYTES % (AUTO) 8.4 % (21.0-51.0); MEAN CORPUSCULAR HEMOGLOBIN 28.2 pg (27.0-33.0); MEAN CORPUSCULAR HGB CONC 33.3 g/dL (32.0-36.0); MEAN CORPUSCULAR VOLUME 84.6 fL (80-100); MONOCYTES % (AUTO) 5.1 % (3.0-13.0); PLATELET COUNT (AUTO) 206 K/uL (130-400); RED BLOOD CELL COUNT(AUTO) 4.48 MIL/uL (4.00-5.50); RED CELL DISTRIBUTION WIDTH 17.2 % (11.0-15.5)
[2019-02-13 16:53] LABS: CREATININE 0.6 mg/dL (0.5-1.5); POTASSIUM 4.2 mmol/L (3.5-5.1)
[2019-02-13 16:59] LABS: ALBUMIN 3.4 g/dL (3.5-5.0); BILIRUBIN,TOTAL 2.9 mg/dL (0.2-1.0); TOTAL PROTEIN, SERUM 7.3 g/dL (6.0-8.3)
== END 2019-02-13 17:43 | disposition home or self-care (01) ==
LOC: EDH 15:37
DX: R10.13 Epigastric pain (principal); G89.18 Other acute postprocedural pain; Z90.49 Acquired absence of other specified parts of digestive tract
CPT/HCPCS: 36415; 71045; 80053; 83690; 84484; 85025; 93005; 96374; 96375; 99285; J2270; J2405

== ENCOUNTER 2019-09-22 13:10 | Emergency (ER) | payer MEDICAID, OTHER ==
[2019-09-22] MEDS ORDERED: LIDOCAINE 5% TOPICAL PATCH TP ONE (13:33)
[2019-09-22] MEDS ORDERED: CYCLOBENZAPRINE HCL 10 MG TABLET ONE (13:34)
[2019-09-22] MEDS ORDERED: ACETAMINOPHEN EXTRA STRENGTH 500 MG TABLET ONE (13:34)
[2019-09-22 13:45] LABS: APPEARANCE,URINE Cloudy (CLEAR); BILIRUBIN,URINE Negative (NEGATIVE); COLOR,URINE Yellow (YELLOW); GLUCOSE, URINE (UA) Negative (NEGATIVE); KETONES,URINE Trace mg/dL (NEGATIVE); LEUKOCYTE ESTERASE ,URINE Moderate (NEGATIVE); NITRATE,URINE Negative (NEGATIVE); OCCULT BLOOD,URINE Negative (NEGATIVE); PROTEIN,URINE Negative (NEGATIVE); UROBILINOGEN,URINE 0.2 mg/dL (0.2-1.0)
[2019-09-22 13:46] LABS: HCG,QUAL RESULT NEGATIVE (NEGATIVE)
[2019-09-22 13:52] LABS: BACTERIA,URINE Rare /HPF (None Seen); MUCUS,URINE Few LPF (None Seen); RBC,URINE 0-1 /HPF (0-1); SQUAMOUS EPITHELIAL CELL,UR Few /HPF (0-2)
== END 2019-09-22 14:17 | disposition home or self-care (01) ==
LOC: EDH 13:10
DX: M54.16 Radiculopathy, lumbar region (principal)
CPT/HCPCS: 81001; 81025